=== PATIENT | female | born 1985 | race Caucasian/White ===

== ENCOUNTER 2017-07-06 07:02 | Emergency (ER) | payer MEDICAID ==
[~2017-07-06] VITALS: Ht 167.6 cm; Wt 55.0 kg
[2017-07-06 07:14] VITALS: BP 130/79; PULSE 87; RESP 20; TEMP 98.3; O2SAT 100
--- NOTE | 2017-07-06 08:34 | PD ---
HPI Chief Complaint: Cold / Flu Symptoms Time Seen by Provider: 08:26 Travel History International Travel<30 days: No Contact w/Intl Traveler<30days: No Traveled to known affect area: No History of Present Illness HPI 32-year-old woman with cough cold symptoms, lost her voice, sore throat, little bit of pain with swallowing. Swallowing without difficulty however. No breathing difficulties. No fevers. No definite sick contacts. Feeling otherwise well. 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 History Past Medical History Narrative Medical Heart murmur as a child, pacemaker placement as a child : 4 Para: 4 Social History Alcohol Use: No Tobacco Use: No Allergies-Medications (Allergen,Severity, Reaction): Coded Allergies: ciprofloxacin (Unverified Adverse Reaction, Severe, Anaphylaxis, 12/08/16) Reported Meds & Prescriptions Reported Meds & Active Scripts Active No Active Prescriptions or Reported Medications Review of Systems Except as stated in HPI: all other systems reviewed are Neg Physical Exam Narrative GENERAL: Well-appearing 32-year-old woman, no acute distress per SKIN: Focused skin assessment warm/dry. HEAD: Atraumatic. Normocephalic. EYES: Pupils equal and round. No scleral icterus. No injection or drainage. ENT: No nasal bleeding or discharge. Mucous membranes pink and moist. Throat is normal. NECK: Trachea midline. No JVD. Moderate tender cervical adenopathy. CARDIOVASCULAR: Regular rate and rhythm. No murmur appreciated. RESPIRATORY: No accessory muscle use. Clear to auscultation. Breath sounds equal bilaterally. GASTROINTESTINAL: Abdomen soft, non-tender, nondistended. Hepatic and splenic margins not palpable. MUSCULOSKELETAL: No obvious deformities. No clubbing. No cyanosis. No edema. NEUROLOGICAL: Awake and alert. No obvious cranial nerve deficits. Motor grossly within normal limits. Normal speech. PSYCHIATRIC: Appropriate mood and affect; insight and judgment normal. Data Data Last Documented VS Vital Signs Date Time Temp Pulse Resp B/P (MAP) Pulse Ox O2 Delivery O2 Flow Rate FiO2 07/06/17 07:14 98.3 87 20 130/79 (96) 100 Orders Orders Group A Rapid Strep Screen (07/06/17 07:17) Influenzae A/B Antigen (07/06/17 07:17) Strep Culture (Group A) (07/06/17 07:25) MDM Medical Decision Making Medical Screen Exam Complete: Yes Emergency Medical Condition: Yes Differential Diagnosis Laryngitis, pharyngitis, tonsillitis, epiglottitis, other Narrative Course Medical decision making INITIAL is a 30-year-old woman presents emergency department complaining of sore throat cough cold symptoms. Looks well. Likely laryngitis. Recommend supportive treatment. Diagnosis Primary Impression: Laryngitis Patient Instructions: General Instructions Additional Instructions: Take ibuprofen or Aleve as needed for sore throat and pain. Return to the emergency department worsening trouble swallowing, shortness of breath, or any other new or worsening symptoms. Med/Other Pt SpecificInfo: No Change to Meds Scripts No Active Prescriptions or Reported Meds Disposition: 01 DISCHARGE HOME Condition: Stable Jesus Whitehead MD Jul 06, 2017 08:34
--- NOTE | 2017-07-06 08:35 | PD ---
Data Data Last Documented VS Vital Signs Date Time Temp Pulse Resp B/P (MAP) Pulse Ox O2 Delivery O2 Flow Rate FiO2 07/06/17 07:14 98.3 87 20 130/79 (96) 100 Orders Orders Group A Rapid Strep Screen (07/06/17 07:17) Influenzae A/B Antigen (07/06/17 07:17) Strep Culture (Group A) (07/06/17 07:25) Ed Discharge Order (07/06/17 08:34) MDM Supervised Visit with LISA: No Narrative Course Flu and rapid strep negative Diagnosis Primary Impression: Laryngitis Patient Instructions: General Instructions Departure Forms: Tests/Procedures, Work Release Enter return to work date: Jul 09, 2017 Additional Instruction: Take ibuprofen or Aleve as needed for sore throat and pain. Return to the emergency department worsening trouble swallowing, shortness of breath, or any other new or worsening symptoms. Scripts No Active Prescriptions or Reported Meds Disposition: 01 DISCHARGE HOME Condition: Stable Jesus Whitehead MD Jul 06, 2017 08:35
== END 2017-07-06 09:05 | disposition home or self-care (01) ==
LOC: NEPK 07:02
DX: J04.0 Acute laryngitis (principal)
CPT/HCPCS: 87081; 87804; 87880; 99283

== ENCOUNTER 2017-09-01 20:27 | Emergency (ER) | payer MEDICAID | END 2017-09-01 21:35 | disposition left against medical advice (07) | LOC: NED 20:27 | DX: Z45.018 Encounter for adjustment and management of other part of cardiac pacemaker (principal) | CPT/HCPCS: 99281 ==